=== PATIENT | female | born 1960 | race Caucasian/White ===

== ENCOUNTER 2019-02-12 07:54 | Day surgery (SDC) | payer OTHER ==
[2019-02-12 08:32] VITALS: BMI 33.6
[2019-02-12 08:40] VITALS: TEMP 98
[2019-02-12] MEDS ORDERED: Propofol 10 mg/ml Inj (20 ML) ONE ×2 (10:29→10:51)
--- NOTE | 2019-02-12 10:32 | CP.SDSHP ---
Same Day Surgery H & P - History Proposed Procedure: EGD and colonoscopy Pre-Op Diagnosis: Abdominal pain, chronic diarrhea - Previous Medical/Surgical History Cardiac: Hypertension Pulmonary: Asthma Endocrine/Metabolic: Thyroid Disease Previous Surgical History: none - Allergies Allergies: Allergies Penicillins Allergy (Verified 07/16/16 14:00) shrimp Allergy (Verified 07/16/16 14:00) - Current Medications Current Medications: reviewed, per reconciliation - Physical Exam General Appearance: wdwn nad Vital Signs: Vital Signs 02/12/19 08:00 Temperature 98 F Pulse Rate 68 Respiratory 18 Rate Blood Pressure 151/64 H O2 Sat by Pulse 98 Oximetry Mental Status: Alert & Oriented x3 Heart: WNL Lungs: WNL GI: WNL - {Optional Preform as Required} Abdomen: WNL - Impression Impression: abd pain/diarrhea Pt. Evaluated Today:Candidate for Anesthesia & Procedure: Yes - Date & Time Date: 02/12/19 Time: 10:31 Short Stay Discharge - Short Stay Discharge Admitting Diagnosis/Reason for Visit: GENERALIZED ABDOMINAL PAIN Disposition: HOME/ ROUTINE
[2019-02-12 11:55] VITALS: RESP 19
[2019-02-12 12:12] VITALS: BP 140/93; PULSE 79; O2SAT 99
== END 2019-02-12 12:08 | disposition home or self-care (01) ==
LOC: C.ENDO 07:54
PROVIDERS: ATTEND Internal Medicine Gastroenterology
DX: K29.70 Gastritis, unspecified, without bleeding (principal); R10.84 Generalized abdominal pain; K52.9 Noninfective gastroenteritis and colitis, unspecified; K29.80 Duodenitis without bleeding; K64.8 Other hemorrhoids; K57.90 Diverticulosis of intestine, part unspecified, without perforation or abscess without bleeding
CPT/HCPCS: 43239; 45380; 87045; 87177; 87209; 88305; 88313; 88342; J2001; J2704